=== PATIENT | female | born 1980 | race Caucasian/White ===

== ENCOUNTER 2019-07-15 09:06 | Day surgery (SDC) | payer OTHER ==
[2019-07-15] VITALS (9 sets, daily range): BP systolic 101–118; BP diastolic 54–72; PULSE 70–79; RESP 16–18; Ht 157.5 cm; Wt 89.1 kg
[~2019-07-15] VITALS: Ht 157.5 cm; Wt 89.1 kg
[~2019-07-15 09:06] MED LIST: HYDR-4011 PO
[2019-07-15] MEDS ORDERED: DIPHENHYDRAMINE 50 MG INJ IV PRN (11:30)
[2019-07-15] MEDS ORDERED: ONDANSETRON 4 MG INJ IV PRN (11:30)
[2019-07-15] MEDS ORDERED: HYDROmorphONE 1 MG/5 ML IV SYRINGE IV PRN ×3 (11:30)
[2019-07-15] MEDS ORDERED: PROCHLORPERAZINE 10 MG INJ IV PRN (11:30)
[2019-07-15] MEDS ORDERED: OXYCODONE/ACETAMINOPHEN (5/325) TAB PO PRN (11:30)
[2019-07-15] MEDS ORDERED: FENTAnyl 50 MCG/ML VIAL IV PRN (11:30)
[2019-07-15] MEDS ORDERED: MEPERIDINE 25 MG INJ IV PRN (11:30)
[2019-07-15] MEDS ORDERED: LIDOCAINE 1%/EPI 30 ML INJ ONE (12:02)
[2019-07-15] MEDS ORDERED: COCAINE 4% 4 ML TOP ONE (12:02)
[2019-07-15] MEDS ORDERED: BACITRACIN/POLYMYXIN 28.35 GM OINT TOP ONE (12:03)
[2019-07-15] MEDS ORDERED: MIDAZOLAM 1 MG/ML 2 ML INJ ONE (12:18)
[2019-07-15] MEDS ORDERED: LIDOCAINE 2% (SDV) 5 ML INJ ONE (12:18)
[2019-07-15] MEDS ORDERED: PROPOFOL 20 ML ONE ×2 (12:18→12:53)
[2019-07-15] MEDS ORDERED: SUCCINYLCHOLINE CHLORIDE 100 MG/5 ML SYG IV ONE (12:18)
[2019-07-15] MEDS ORDERED: FENTAnyl 50 MCG/ML VIAL ONE (12:19)
[2019-07-15] MEDS ORDERED: DEXAMETHASONE 4 MG/ML 5 ML INJ ONE (12:28)
[2019-07-15] MEDS ORDERED: ONDANSETRON 4 MG INJ ONE (12:28)
[2019-07-15] MEDS ORDERED: FAMOTIDINE 20 MG INJ ONE (12:28)
[2019-07-15] MEDS ORDERED: CEFAZOLIN 1 GM INJ ONE (12:28)
[2019-07-15] MEDS ORDERED: ROCURONIUM 50 MG INJ ONE (12:32)
[2019-07-15] MEDS ORDERED: PHENYLephrine (100 MCG/ML) 10ML SYG ONE (13:02)
[2019-07-15] MEDS ORDERED: NEOSTIGMINE 3 MG/3 ML SYRINGE ONE ×2 (13:19→13:24)
[2019-07-15] MEDS ORDERED: GLYCOPYRROLATE 0.4 MG INJ ONE ×2 (13:19→13:24)
== END 2019-07-15 15:58 | disposition home or self-care (01) ==
LOC: SDS 09:06
PROVIDERS: ATTEND Otolaryngology Otolaryngology/Facial Plastic Surgery
DX: J34.2 Deviated nasal septum (principal); J34.3 Hypertrophy of nasal turbinates
CPT/HCPCS: 30140; 30520; 84703; 88300; J0690; J1100; J2250; J2370; J2405; J2710; J3010; Z7512; Z7610

== ENCOUNTER 2019-07-16 04:01 | Emergency (ER) | payer OTHER ==
[~2019-07-16] VITALS: Ht 157.5 cm; Wt 89.8 kg
[2019-07-16 04:06] VITALS: BP 147/93; PULSE 86; RESP 19; Ht 157.5 cm; Wt 89.8 kg
== END 2019-07-16 05:01 | disposition home or self-care (01) ==
LOC: E/R 04:01
DX: G89.18 Other acute postprocedural pain (principal)
CPT/HCPCS: 99283